=== PATIENT | female | born 1940 | race Caucasian/White ===

== ENCOUNTER → 2022-04-25 | Outpatient (CLI) | payer OTHER ==
[~2022-04-25] MED LIST: ASPIR-LOW81 MG PO; CALCIUM 600 +1 EAC2 PO; CRESTOR20 MG PO; GLIMEPIRIDE1 MG PO; LEVOTHYROXINE50 MCG PO; LISINOPRIL20 MG PO; MECLIZINE HCL25 MG PO; MEGACE TAB 20 M20 MG PO; TENORMIN 50 MG50 MG PO
== END ==
LOC: EXRD 13:26
DX: I65.29 Occlusion and stenosis of unspecified carotid artery (principal)
CPT/HCPCS: 93880